=== PATIENT | female | born 1995 | race Asian ===

== ENCOUNTER 2024-05-28 07:35 | Outpatient (CLI) | payer BC, SELFPAY ==
--- NOTE | 2024-05-28 07:15 | CRLHL7_ITS ---
For Patients: As a result of the Century Cures Act, medical imaging exams and procedure reports are released immediately into your electronic medical record. You may view this report before your referring provider. If you have questions, please contact your health care provider. OB ULTRASOUND LESS THAN 14 WEEKS, 05/28/2024 CLINICAL HISTORY: Dating and viability. COMPARISON: None. TECHNIQUE: Real time rod scale imaging of the fetus was performed transvaginally and transabdominally. FINDINGS: LMP: 03/28/2024. ZAY by LMP: 01/02/2025. GA: 8 weeks 5 days. CRL: 2.4 cm, 9 weeks 1 day. ZAY: 12/30/2024. FHR: 180 bpm. GEST SAC: 3.8 cm, appears within normal limits. YOLK SAC: 3.2 mm, appears within normal limits. RIGHT OVARY: 3.1 x 1.6 x 1.6 cm, appears within normal limits. CL LFT OVARY: Not visualized. IMPRESSION: 1. Single living intrauterine with sonographic gestational age 9 weeks 1 day and sonographic due date 12/30/2024. 2. Large posterior fundal exophytic fibroid measures 13.3 x 7.9 x 12.1 cm. Smaller posterior intramural fibroid measures 3.1 x 2.2 x 2.7 cm. 3. Corpus luteal cyst right ovary. Non visualization left ovary. Spencer Rodriguez M.D. Diagnostic Radiologist [email or web address] Transcribed: 1:02 pm DW/Dictated by: Spencer Rodriguez MD @ 05/28/2024 10:59:00 AM (Electronically Signed)
== END 2024-05-28 07:36 | disposition home or self-care (01) ==
LOC: US 07:38
PROVIDERS: Visit Provider Advanced Practice Midwife
DX: Z34.91 Encounter for supervision of normal pregnancy, unspecified, first trimester (principal); O34.11 Maternal care for benign tumor of corpus uteri, first trimester; N83.11 Corpus luteum cyst of right ovary; D25.1 Intramural leiomyoma of uterus; Z3A.09 9 weeks gestation of pregnancy
CPT/HCPCS: 76801; 76817; 83021; 84443; 86592; 86703; 86704; 86706; 86762; 86787; 86803; 86850; 86900; 86901; 87086; 87340

== ENCOUNTER 2024-05-28 08:40 | Outpatient (CLI) | payer BC, SELFPAY | END 2024-05-28 08:41 | disposition home or self-care (01) | PROVIDERS: Visit Provider Advanced Practice Midwife | DX: Z34.01 Encounter for supervision of normal first pregnancy, first trimester (principal); Z67.10 Type A blood, Rh positive | CPT/HCPCS: 83020; 83021; 84443; 85660; 86592; 86703; 86704; 86706; 86762; 86787; 86803; 86850; 86900; 86901; 87086; 87340 ==

== ENCOUNTER 2024-10-13 09:04 | Outpatient (CLI) | payer BC, SELFPAY ==
--- NOTE | 2024-10-13 09:15 | CRLHL7_ITS ---
For Patients: As a result of the Century Cures Act, medical imaging exams and procedure reports are released immediately into your electronic medical record. You may view this report before your referring provider. If you have questions, please contact your health care provider. INDICATION: Circumvallate placenta and marginal insertion. Assess growth. TECHNIQUE: Ultrasound OB pelvis transabdominal. Real time rod scale imaging of the fetus was performed. COMPARISON: Ultrasound 09/15/2024 FINDINGS: Sonographic imaging demonstrates a single living intrauterine gestation. Fetus demonstrates a regular cardiac rate of 145 beats per minute. Fetus has a transverse orientation. The placenta lies in left fundal location without evidence of placenta previa. A placental Fuentes is noted measuring 3.7 cm. Amniotic fluid volume appears normal. Single deepest vertical pocket: 6.1 cm. Cervical length measures 4.8 cm. The composite ultrasound gestational age is calculated at 29 weeks 1 day with an estimated sonographic due date of 12/28/2024. The estimated weight is 1289 grams which lies at the 52%. The following biometric measurements were obtained: Biparietal diameter: 7.5 cm, 29 weeks 6 days Head circumference: 27.1 cm, 29 weeks 4 days Abdominal circumference: 24.2 cm, 28 weeks 3 days Femur length: 5.5 cm, 28 weeks 6 days A large fundal fibroid is redemonstrated measuring 15.5 x 10.1 x 12.9 cm. Previously seen posterior fibroid is not visualized on this exam. IMPRESSION: 1. Single living intrauterine gestation. Composite ultrasound gestational age of 29 weeks 1 day with estimated sonographic due date of 12/28/2024. Fetus appears to have demonstrated appropriate interval growth. 2. Dominant fundal uterine fibroid measuring 15.5 cm, grossly stable to prior exam. Dictated by Jose Sneed MD @ 10/17/2024 6:15:43 PM (Electronically Signed)
== END 2024-10-13 09:05 | disposition home or self-care (01) ==
LOC: US 09:05
PROVIDERS: Visit Provider Obstetrics & Gynecology
DX: O99.013 Anemia complicating pregnancy, third trimester (principal); Z3A.28 28 weeks gestation of pregnancy
CPT/HCPCS: 76816

== ENCOUNTER 2024-11-10 07:09 | Outpatient (CLI) | payer BC, SELFPAY ==
--- NOTE | 2024-11-10 07:15 | CRLHL7_ITS ---
For Patients: As a result of the Century Cures Act, medical imaging exams and procedure reports are released immediately into your electronic medical record. You may view this report before your referring provider. If you have questions, please contact your health care provider. OB ULTRASOUND ZAY by LMP: 01/02/2025. GA: 32 w, 3 d. Single. Comparison: 10/13/2024, 09/15/2024, 08/18/2024. INDICATION: Growth. Fibroid. Circumvallate. TECHNIQUE: Real time grayscale imaging of the fetus was performed. Transabdominal. CERVIX: Not visualized. POSITIONING: Vertex. AMNIOTIC FLUID: 5.9 cm. SDP (N: greater than 2 x 1 cm) PLACENTA: Technique: Transabdominal. PLACENTA POSITION: Fundal, left wall. DOPPLER: heart rate: 154 bpm. BIOMETRY: BPD: 8.3 cm. 33 w, 4 d, 75 percent. HC: 29.6 cm. 32 w, 5 d, 22 percent. AC: 27.5 cm. 31 w, 4 d, 25 percent. FL: 6.2 cm. 32 w, 1 d, 30 percent. FL/AC ratio: 22.55 percent. HC/AC ratio: 1.08. EFW: 1887 g. Weight: 4 lbs, 3 oz. age by this US: 32 w, 4 d. ZAY by this US: 01/01/2025. Percentile by ZAY: 28 percent. IMPRESSION: 1. Sonographic gestational age 32 weeks 4 days and sonographic due date 01/01/2025. Good correlation with dates. Normal interval growth. 2. Estimated weight 28th percentile. Abdominal circumference 25th percentile. 3. Large right-sided uterine fibroid measures 16.1 x 13.4 x 15.7 cm, previously measuring 15.5 x 10.1 x 12.9 cm. Spencer Rodriguez M.D. Diagnostic Radiologist [email or web address] FLAKO/milan yates/Dictated by: Spencer Rodriguez MD @ 11/10/2024 8:45:00 AM (Electronically Signed)
== END 2024-11-10 07:10 | disposition home or self-care (01) ==
LOC: US 07:10
PROVIDERS: Visit Provider Obstetrics & Gynecology
DX: O43.113 Circumvallate placenta, third trimester (principal); O34.13 Maternal care for benign tumor of corpus uteri, third trimester; D25.9 Leiomyoma of uterus, unspecified; Z3A.32 32 weeks gestation of pregnancy
CPT/HCPCS: 76816

== ENCOUNTER 2024-11-25 09:08 | Outpatient (CLI) | payer BC, SELFPAY | END 2024-11-25 09:09 | disposition home or self-care (01) | LOC: NFLDREF 11-30 13:44 | PROVIDERS: Visit Provider Obstetrics & Gynecology | DX: Z34.90 Encounter for supervision of normal pregnancy, unspecified, unspecified trimester (principal) | CPT/HCPCS: 82728 ==

== ENCOUNTER 2024-12-08 07:12 | Outpatient (CLI) | payer BC, SELFPAY ==
--- NOTE | 2024-12-08 07:15 | CRLHL7_ITS ---
For Patients: As a result of the Century Cures Act, medical imaging exams and procedure reports are released immediately into your electronic medical record. You may view this report before your referring provider. If you have questions, please contact your health care provider. INDICATION: Marginal cord insertion, circumvallate placenta TECHNIQUE: Ultrasound OB pelvis transabdominal. Real-time rod-scale imaging of the fetus was performed without stress testing. COMPARISON: Ob ultrasound 11/10/2024 FINDINGS: Ariza intrauterine gestation. Cardiac activity with heart rate of 141 beats per minute. Fetus has a cephalic orientation. Biometric measurements: Biparietal diameter: 45.1%. Head circumference: 28.4%. Abdominal circumference: 59.3%. Femur length: 31.6%. Estimated weight: 2877 grams, 46.8 percentile. Estimated ultrasound age by today`s measurements is 36 weeks, 1 day. Amniotic fluid volume appears normal, with single deepest pocket measuring 4.8 centimeters. motion, and tone were reportedly observed. was not observed. Fibroid uterus with a large exophytic fibroid measuring 15.5 x 8.3 x 11.8 centimeters, previously 16.1 x 13.4 x 15.7 centimeters. IMPRESSION: Ariza intrauterine in cephalic presentation with cardiac activity. Estimated gestational age of 32 weeks, 3 days by LMP is concordant with biometry. There has been interval growth with estimated weight now at 2877 grams, which is at 46.8 percentile, previously 1887 grams which was at 28th percentile. Biophysical profile score of 6/8 with breathing not visualized. Correlation with nonstress test can be considered at clinical discretion. Dictated by Xuan Grier MD @ 12/08/2024 8:37:26 AM (Electronically Signed)
== END 2024-12-08 07:13 | disposition home or self-care (01) ==
LOC: US 07:13
PROVIDERS: Visit Provider Obstetrics & Gynecology
DX: O43.193 Other malformation of placenta, third trimester (principal); O43.113 Circumvallate placenta, third trimester; Z3A.32 32 weeks gestation of pregnancy
CPT/HCPCS: 76816; 76819

== ENCOUNTER 2024-12-18 07:26 | Outpatient (CLI) | payer BC, SELFPAY ==
--- NOTE | 2024-12-18 07:15 | CRLHL7_ITS ---
For Patients: As a result of the Cures Act, medical imaging exams and procedure reports are released immediately into your electronic medical record. You may view this report before your referring provider. If you have questions, please contact your health care provider. OB ULTRASOUND ZAY by LMP: 01/02/2025. GA: 37 w, 6 d. Single. Comparison: 12/08/2024, 11/10/2024, 10/13/2024. INDICATION: Circumvallate placenta and marginal cord insertion. TECHNIQUE: Real time grayscale imaging of the fetus was performed. Transabdominal. CERVIX: Not visualized. POSITIONING: Vertex. AMNIOTIC FLUID: 6.1 cm. SDP (N: greater than 2 x 1 cm) BIOPHYSICAL PROFILE: 2: Gross body movements 2: tone 2: Respiratory activity 2: Amniotic fluid SDP (N: greater than 2 x 1 cm) 8/8: Total score PLACENTA: Technique: Transabdominal. PLACENTA POSITION: Anterior, left wall. DOPPLER: heart rate: 139 bpm. IMPRESSION: 1. Normal biophysical profile score 8/8. 2. Large right-sided exophytic fibroid again noted which measures 15.5 x 11.1 x 11.7 cm, not significantly changed. Spencer Rodriguez M.D. Diagnostic Radiologist [email or web address] FLAKO/milan yates/Dictated by: Spencer Rodriguez MD @ 12/18/2024 10:45:00 AM (Electronically Signed)
== END 2024-12-18 07:27 | disposition home or self-care (01) ==
LOC: US 07:27
PROVIDERS: Visit Provider Obstetrics & Gynecology
DX: O34.83 Maternal care for other abnormalities of pelvic organs, third trimester (principal); O43.113 Circumvallate placenta, third trimester; D25.9 Leiomyoma of uterus, unspecified; Z3A.37 37 weeks gestation of pregnancy
CPT/HCPCS: 76819

== ENCOUNTER 2024-12-22 07:14 | Outpatient (CLI) | payer BC, SELFPAY ==
--- NOTE | 2024-12-22 07:15 | CRLHL7_ITS ---
For Patients: As a result of the Century Cures Act, medical imaging exams and procedure reports are released immediately into your electronic medical record. You may view this report before your referring provider. If you have questions, please contact your health care provider. OB ULTRASOUND BIOPHYSICAL PROFILE ZAY by LMP: 01/02/2025. GA: 38 w, 3 d. Single. Comparison: US 12/18/2024, 12/08/2024. INDICATION: Leimyoma of uterus. TECHNIQUE: Real time rod scale imaging of the fetus was performed. Transabdominal. CERVIX: Not visualized. POSITIONING: Vertex. AMNIOTIC FLUID: 7.6 cm. SDP (N: greater than 2 x 1 cm) BIOPHYSICAL PROFILE: Total score: 2. Gross body movements: 2. tone: 2. Respiratory activity: 2. Amniotic fluid: 2. (SDP N: greater than 2 x 1 cm) Total: 10/23. PLACENTA: Technique: Transabdominal. PLACENTA POSITION: Anterior. DOPPLER: heart rate: 138 bpm. IMPRESSION: 1. Normal biophysical profile 10/23. 2. Uterine fibroid measures 15.2 x 11.9 x 12.2 cm, not significantly changed. Spencer Rodriguez M.D. Diagnostic Radiologist [email or web address] FLAKO/willis JR/Dictated by: Spencer Rodriguez MD @ 12/22/2024 8:28:00 AM (Electronically Signed)
== END 2024-12-22 07:15 | disposition home or self-care (01) ==
LOC: US 07:15
PROVIDERS: Visit Provider Obstetrics & Gynecology
DX: O43.113 Circumvallate placenta, third trimester (principal); O34.13 Maternal care for benign tumor of corpus uteri, third trimester; D25.9 Leiomyoma of uterus, unspecified; Z3A.37 37 weeks gestation of pregnancy
CPT/HCPCS: 76819

== ENCOUNTER 2024-12-28 14:51 | Outpatient (CLI) | payer BC, SELFPAY ==
[2024-12-28 15:33] VITALS: RESP 16; TEMP 36.9
[2024-12-28 15:34] VITALS: BP 110/77; PULSE 83
[2024-12-28 15:35] VITALS: PULSE 79; O2SAT 97
[2024-12-28 15:38] LABS: Amnisure Rom* Negative
--- NOTE | 2024-12-28 17:01 | PC.OBNST ---
NST Note NST Note Start: 12/28/24 15:03 Freq: ONCE Status: Active Protocol: Document 12/28/24 17:00 ABE (Rec: 12/28/24 17:01 ABE No Response) NST Note 1 Para (# of births) 0 EDC 01/02/25 Gestational Age In 39 Weeks & 2 Days Weeks & Days Patient Presented Contractions/cramping,Leaking fluid with Complaint(s) of Reactive Yes Appropriate for Yes Gestational Age SHAE Higginbotham, RN Date 12/28/24 Reactive Yes Appropriate for Yes Gestational Age SHAE Perrin RNC Date 12/28/24 OB NST charge Yes Complete NST Note Yes via Write Note The provider's electronic signature indicates the NST is reactive/appropriate for gestational age. *Note to provider: If an addendum is required, open the patient's chart and click on the note under the Nurse/Allied Health tab.
[2024-12-28 17:39] LABS: Bacterial Vaginosis* Negative (Negative); Candida glab/krus DETECTED (No Detected)
== END 2024-12-28 16:39 | disposition home or self-care (01) ==
LOC: OB OUT 14:52 → OB 14:52
PROVIDERS: Visit Provider Obstetrics & Gynecology
DX: O43.193 Other malformation of placenta, third trimester (principal); O34.13 Maternal care for benign tumor of corpus uteri, third trimester; D25.9 Leiomyoma of uterus, unspecified; Z3A.39 39 weeks gestation of pregnancy
CPT/HCPCS: 59025; 81513; 84112; 87481; 87661; G0463

== ENCOUNTER 2024-12-29 08:08 | Outpatient (CLI) | payer BC, SELFPAY ==
--- NOTE | 2024-12-29 08:15 | CRLHL7_ITS ---
For Patients: As a result of the Century Cures Act, medical imaging exams and procedure reports are released immediately into your electronic medical record. You may view this report before your referring provider. If you have questions, please contact your health care provider. OBSTETRICAL ULTRASOUND ??? BIOPHYSICAL PROFILE INDICATION: Marginal cord insertion, circumvallate placenta, and fibroid uterus. Biophysical profile. CLINICAL HISTORY: LMP: 03/28/2024 ZAY by LMP: 01/02/2025 Gestational Age: 39 weeks 3 days COMPARISON: 12/22/2024, 12/18/2024, 12/08/2024. TECHNIQUE: Real-time rod-scale transabdominal imaging of the fetus was performed. FINDINGS: Fetus: Single Cervix: Not visualized positioning: Vertex Amniotic Fluid: 7.6 cm SDP BIOPHYSICAL PROFILE: Gross body movements: 2 tone: 2 Respiratory activity: 2 Amniotic fluid SDP: 2 Total score: 8 Placenta technique: Transabdominal Placenta position: Anterior heart rate: 129 bpm IMPRESSION: 1. Normal biophysical profile score of 8/8. 2. Exophytic right-sided uterine fibroid again noted which measures 14.9 x 8.3 x 11.0 cm. SPENCER MARTINEZ M.D. Diagnostic Radiologist [email or web address] Transcribed: 10:[address]/Dictated by: Spencer Martinez MD @ 12/29/2024 9:59:00 AM (Electronically Signed)
== END 2024-12-29 08:09 | disposition home or self-care (01) ==
LOC: US 08:08
PROVIDERS: Visit Provider Obstetrics & Gynecology
DX: O43.113 Circumvallate placenta, third trimester (principal); O34.13 Maternal care for benign tumor of corpus uteri, third trimester; D25.9 Leiomyoma of uterus, unspecified; Z3A.39 39 weeks gestation of pregnancy; O43.193 Other malformation of placenta, third trimester
CPT/HCPCS: 76819

== ENCOUNTER 2024-12-31 02:09 | Inpatient (IN) | payer BC, SELFPAY ==
[2024-12-31] VITALS (55 sets, daily range): BP systolic 88–130; BP diastolic 49–79; PULSE 62–100; RESP 16; TEMP 36.6–37.2; O2SAT 93–100; BMI 31.1
[2024-12-31 02:04] LABS: Amnisure Rom* POSITIVE
[2024-12-31] MEDS: CALCIUM CARBONATE 500 MG CHEW PO (04:05)
--- NOTE | 2024-12-31 04:41 | P.LDBA_ITS ---
Subjective History of Present Illness Date Seen: 12/31/24 Narrative: Patient is being admitted to Labor and Delivery for spontaneous rupture of membranes. She is a 29 year old at 39 5/7 weeks gestation. Her full history and physical was dictated by Dr. Moore on 12/18/2024. Please see this for details. She experience leakage of clear fluid from the vagina prior to her arrival to the unit at 1:15 a.m. this morning. Rupture of membranes was confirmed by visual examination and AmniSure test. She is currently experiencing contractions at about 5 minute intervals. She states the contractions started following membrane rupture. Her fetus remains active. Specific Issues/Plans G1 : Deny Baby: Boy! 05/28/2024: Paperwork declined patient was asked to complete the 5P's and Social History questionnaire twice and did not fill out. # Large fundal fibroid 13.3 cm x 7.9 cm x 12.1 cm 11/10/24: 16.1 x 13.4 x 15.7 cm At risk for labor, growth restriction, dysfunctional labor, and PPH Recommend Level II-completed. See below - Recommend CBC, T/C for 2 u on admission, AMTSL #Circumvallate placenta and marginal cord insertion US for EFW Q4 wks, weekly BPP starting at 36 weeks. sheet filled on 10/13 # Migraine with Aura # PHQ 15 at NOB, consider follow-up Imagin07/15/24- Lev 2 SLIUP 15w4d, no anomalies detected. Growth parameters normal and consistent with assigned ZAY. AFV is normal. Mulitiple fibroids noted with largest measuring 15.3 cmx 14.4cmx 10cm near right fundal uterus. Unclear if pedunculated or attached to exterior uterine wall. F/U in 4 week for detailed survey. 08/18/24 LVL 2: Transverse presentation. SDP 5.3 cm. Posterior placenta without previa. 3-vessel cord. EFW 53%. Largest fibroid right, lateral fundus: 15 x 13 x 16 cm. 2 other anterior fibroids measurin.8 x 1.7 x 1.3 cm and 2.4 x 2.3 x 1.5 cm. Marginal cord insertion. Spine suboptimally visualized due to position. Follow-up with the [facility] physicians in 4 weeks for EFW and for visualization of suboptimal anatomy during this scan. 09/15/24 F/U: Breech, SDP 5.8cm. 3 vessel cord. Circumvallate placenta. Marginal cord insertion. Previous suboptimal anatomy visualized and normal. 3 fibroids: 15.4 x 14.4 x11.7cm. 2.7 x 2.0 x 1.4cm. 2.7cm x 3.2cm x 1.7cm. USN's in [place] for EFW Q4wks, wkly BPP starting at 36 wks. 11/10/24: Vertex, SDP 0.9 cm. Right lateral fibroid measuring 618.1 x 13.4 x 15.7 cm. Posterior fibroid not appreciated. No comment on placenta or cord insertion will await final report []. EFW 28% 12/08/24: Vertex. EFW 2877g at 47%ile - BPD 45%, HC 28%, AC 59%, FL 32%. MVP 4.8cm. 6/8 BPP (NST in clinic to follow). Fibroid measures 15x5x8.3x11.8cm. 12/18/24: 8/8 BPP, MVP 6.1cm, FHR 139bpm. Pap: Never had one, declined at [facility] although strongly encouraged; plan COVID: declined Flu: declined TDAP: 10/28/24 RSV: 12/08/24 32wk Mental Health: 11/10/24 34wk Hgb:11/25/24 10.4 GBS negative OB - Problem Based A/P Additional Plan (1) Spontaneous rupture of membranes: Status: Acute (2) Anemia: Status: Acute (3) Uterine fibroid: Problem details: Large fundal fibroid 13.3 cm x 7.9 cm x 12.1 cm Status: Acute (4) Term : Status: Acute Delivery/Labor/Induction Plan Plan: expectant management OB Result Labs Blood Type: A (+) positive Rubella: immune RPR/VDLR: nonreactive GBS Status: negative HBsAG: negative OB Exam Physical Exam Vital signs: Temp Pulse Resp BP Pulse Ox 98.2 F 63 16 103/60 97 12/31/24 04:10 12/31/24 04:10 12/31/24 04:10 12/31/24 04:10 12/31/24 03:19 Detailed Labor and Delivery Exam Patient Gravid: yes Dilation (cm): 0 Effacement (%): 20 Contraction Frequency: 5 minutes Contraction intensity: Mild Comments: Cervical examination per nursing. Fetus (Single) Station: -4 Amniotic Membrane Status: SROM Amniotic Membrane Fluid Description: Clear Heart Rate Baseline: 130 Monitor Accelerations: Present Monitor Decelerations: None Freight Elevator Erector Variability: Moderate (6-25)
[2024-12-31 10:01] LABS: Hematocrit* 35.2 % (33.0-51.0); Hemoglobin* 11.4 gm/dL (12.0-16.0); Immature Granulocytes Abs Auto 0.17 K/uL (0.00-0.30); Immature Granulocytes Pct Auto 1.9 %; Mean Corpuscular HGB Conc 32 gm/dL (32-36); Mean Corpuscular Hemoglobin 26 pg (26-34); Mean Corpuscular Volume 81 fL (80-100); RDW Coefficient of Variation % 20.1 % (11.5-15.5); Red Blood Count* 4.37 m/uL (4.00-5.20); White Blood Count* 8.94 K/uL (4.50-11.00)
[2024-12-31 10:05] LABS: Lymphocytes Absolute Auto 1.60 K/uL (0.90-2.90); Slide Review Reflex No
--- NOTE | 2024-12-31 15:50 | P.OBPN_ITS ---
OB - PN:Subj Subjective Time Seen by Provider: 07:30 Date Seen: 12/31/24 OB - PN: Obj Exam Physical Exam: Vital signs: Temp Pulse Resp BP Pulse Ox 98.5 F 70 16 106/62 97 12/31/24 15:42 12/31/24 15:42 12/31/24 15:42 12/31/24 15:42 12/31/24 03:19 OB - PN: Obj Data Labs Labs: Laboratory Results - last 24 hr 12/31/24 12/31/24 01:34 09:52 WBC 8.94 RBC 4.37 Hgb 11.4 L Hct 35.2 MCV 81 MCH 26 MCHC 32 RDW Coeff of Pio 20.1 H Plt Count 211 Neut % (Auto) 76.1 H Lymph % (Auto) 18.0 L [place] % (Auto) 3.2 Eos % (Auto) 0.7 Baso % (Auto) 0.1 Neut # (Auto) 6.80 Lymph # (Auto) 1.60 [place] # (Auto) 0.30 Eos # (Auto) 0.06 Baso # (Auto) 0.01 Abs Immat Gran (auto) 0.17 Imm/Tot Granulo (auto) 1.9 Membrane Rupture POSITIVE Blood Type A Positive Antibody Screen NEGATIVE Crossmatch (AHG) See Detail OB - PN: A/P Delivery Assessment and Plan (1) Spontaneous rupture of membranes: Status: Acute (2) Anemia: Status: Acute (3) Uterine fibroid: Problem details: Large fundal fibroid 13.3 cm x 7.9 cm x 12.1 cm Status: Acute (4) Term : Status: Acute
[2024-12-31] MEDS: OXYTOCIN 30 unit/500 ML in NS 30 UNIT/500 ML BAG IVPB (19:27)
[2024-12-31] MEDS: LACTATED RINGERS 1000 ML 1,000 ML 125 ML IV (19:27)
--- NOTE | 2024-12-31 19:54 | P.OBPN_ITS ---
Subjective Time Seen by Provider: 07:30 Date Seen: 12/31/24 Narrative: Patient appreciating contractions but tolerable Objective Vital Signs: Last Vital Signs Temp 99 F 12/31/24 19:05 Pulse 73 12/31/24 19:05 Resp 16 12/31/24 19:05 BP 107/54 L 12/31/24 19:05 Pulse Ox 97 12/31/24 03:19 Pelvic Exam Dilation (cm): 1 Effacement (%): 50 Station: -3 Comments: Minimal change on expectant management. Patient consented to PO misoprostol Contractions Contraction intensity: Mild Assessment Heart Rate Baseline: 130 [place] Examiner Variability: Moderate (6-25) Monitor Accelerations: Present Monitor Decelerations: None
--- NOTE | 2024-12-31 19:59 | PM.OBPNL ---
Subjective Time Seen by Provider: 18:15 Date Seen: 12/31/24 Objective Vital Signs: Last Vital Signs Temp 99 F 12/31/24 19:05 Pulse 73 12/31/24 19:05 Resp 16 12/31/24 19:05 BP 107/54 L 12/31/24 19:05 Pulse Ox 97 12/31/24 03:19 Pelvic Exam Dilation (cm): 1.5 Effacement (%): 75 Station: -1 Comments: Minimal change after 3 doses of PO misoprostol. Patient amenable to starting pitocin Contractions Contraction intensity: Moderate Assessment Heart Rate Baseline: 140 Alf Variability: Marked (>25) Monitor Accelerations: Present Monitor Decelerations: None
[2024-12-31] MEDS: LIDOCAINE 2% (PF) 5 ML VIAL EPIDURAL (23:06)
[2024-12-31] MEDS: ROPIVACAINE 0.2% 100 ml 100 ML 12 MG EPIDURAL (23:06)
[2024-12-31] MEDS: PHENYLEPHRINE 100 MCG/ML SYRINGE IVP ×2 (23:10→23:12)
--- NOTE | 2024-12-31 23:24 | PM.ANBPRC ---
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, Developer Lives with: Pets: none Abuse: Denies past/present Special Diet: Denies Ok with a blood transfusion: yes Culture or mandaeism beliefs: Islamic, no males RISK FACTORS Exercise Times/wk: Not routinely Hx of Depression and/or Anxiety/other mood disorder: no history Seat Belt Use: Routinely Smoking: Denies past/present Alcohol/day: Denies while Caffeine: Soda, rare Drug Use: Denies past/present Chicken Pox: Yes as a child MRSA: Denies What is your current living situation?: I presently have a place to live Problems where you live: no known problems In the past 12 months, utilities in danger of being shut off: no In past 12 months, lack of transportation kept you from medical appts, meetings, work, or getting things needed for daily living: no In the past 12 mos, have been you worried that your food would run out before you had money to buy more?: never true In the past 12 mos, the food you bought just didn't last and you didn't have money to buy more?: never true Smoking Status: Former smoker How often does anyone, including family, friends and others, physically hurt you: never How often does anyone, including family, friends and others, insult or talk down to you: never How often does anyone, including family, friends and others, threaten you with harm: never How often does anyone, including family, friends and others, scream or curse at you: never Meds Home Medications and Allergies Home Medications ?Medication ?Instructions ?Recorded ?Confirmed ?Type vits no.126-ferrous fum 1 tab PO DAILY 08/26/24 12/31/24 History 28 mg iron-folic acid 800 mcg tablet (Classic ) ferrous sulfate 325 mg (65 mg 325 mg PO QMWF #30 tabs 10/13/24 12/31/24 Rx iron) tablet metoclopramide HCl 10 mg tablet 10 mg PO Q6H PRN nausea and 11/10/24 12/31/24 Rx (Reglan) vomiting #30 tabs magnesium 250 mg tablet 500 mg PO QDAY 12/18/24 12/31/24 History Held on 12/31/24. Instructions: Pt chose to stop taking Allergies Allergy/AdvReac Type Severity Reaction Status Date / Time No Known Drug Allergies Allergy Verified 12/31/24 03:57 Results Labs Labs: Laboratory Results - last 24 hr 12/31/24 12/31/24 01:34 09:52 WBC 8.94 RBC 4.37 Hgb 11.4 L Hct 35.2 MCV 81 MCH 26 MCHC 32 RDW Coeff of Pio 20.1 H Plt Count 211 Neut % (Auto) 76.1 H Lymph % (Auto) 18.0 L [place] % (Auto) 3.2 Eos % (Auto) 0.7 Baso % (Auto) 0.1 Neut # (Auto) 6.80 Lymph # (Auto) 1.60 [place] # (Auto) 0.30 Eos # (Auto) 0.06 Baso # (Auto) 0.01 Abs Immat Gran (auto) 0.17 Imm/Tot Granulo (auto) 1.9 Membrane Rupture POSITIVE Blood Type A Positive Antibody Screen NEGATIVE Crossmatch (AHG) See Detail Vital Signs Vital Signs: Last Vital Signs Temp 98.1 F 12/31/24 22:20 Pulse 75 12/31/24 23:22 Resp 16 12/31/24 19:05 BP 125/74 12/31/24 23:22 Pulse Ox 99 12/31/24 23:21 Weight: 87.543 kg Height: 167.64 cm Anesthesia Procedures Epidural Insertion Patient Location: OB Start Time: :35 Stop Time: 23:35 Start Date: 12/31/24 Stop Date: 12/31/24 Reason for Block: procedure for pain Patient Position: sitting Performed By: Corin Devine Preanesthetic Checklist: IV checked, risks and benefits discussed, monitors and equipment checked, pre-op evaluation, timeout performed and anesthesia consent Prep: chlorhexidine gluconate Monitoring: blood pressure monitoring, continuous pulse oximetry and heart rate Approach: midline Vertebral Space: lumbar (1-5) Epidural Technique: MILY saline Needle Type: Tuohy needle Injection Technique: continuous catheter (continuous catheter) Needle gauge: 17 Needle Length (cm): 10 cm Needle Insertion Depth (cm): 7 Catheter Gauge: 19 Catheter Type: multi-orifice Catheter at skin depth (cm): 15 Test Dose Result: negative and lidocaine 1.5% with epinephrine 1 to 200,000
--- NOTE | 2024-12-31 23:47 | PM.OBPNL ---
Subjective Time Seen by Provider: 22:30 Date Seen: 12/31/24 Objective Vital Signs: Last Vital Signs Temp 98.1 F 12/31/24 22:20 Pulse 81 12/31/24 23:43 Resp 16 12/31/24 19:05 BP 103/58 L 12/31/24 23:43 Pulse Ox 97 12/31/24 23:46 Pelvic Exam Dilation (cm): 1.5 Effacement (%): 75 Station: -1 Comments: Patient coping very poorly with pain. On only 3u of pitocin but tomeka Q1-2 minutes. Patient requested a cervical exam and for Pitocin to be turned off. Patient was unchanged and requested an epidural. Does not want Pitocin restarted until she's comfortable and has gotten some rest. MARBLE INSTALLER notified. Patient and partner asked about timeline for recommending delivery. Discussed that if she does not go into active labor 12-18hr with ruptured membrane and on pitocin, then a would be indicated. Pitocin was started at 1930. Recommend epidural placement, restart pitocin some time after epidural placement, and cervical exam at 7:30 AM (which would be 12hrs since the start of pitocin) and reassess then. Patient and partner are happy with this plan. Contractions Contraction intensity: Moderate Assessment Status: Category l Heart Rate Baseline: 130 Account Receivable Associate Variability: Moderate (6-25) Monitor Accelerations: Present Monitor Decelerations: None
[2025-01-01] VITALS (49 sets, daily range): BP systolic 79–125; BP diastolic 49–68; PULSE 71–100; RESP 16; TEMP 36.6–37.2; O2SAT 88–98
[2025-01-01] MEDS: PHENYLEPHRINE 100 MCG/ML SYRINGE IVP ×2 (00:48→01:20)
[2025-01-01] MEDS: ePHEDrine sulfate 5 MG/ML inj 10 MG IVP (01:49)
[2025-01-01] MEDS: LACTATED RINGERS 1000 ML 1,000 ML 125 ML IV (02:17)
--- NOTE | 2025-01-01 05:34 | W.PM.VAGDEL1 ---
Procedure Delivery date: 01/01/25 Procedure Done: Global Narrative: The patient is a 29 year-old G 1 P 0 admitted on 12/31/2024 at 39 and 5/7 weeks gestation for premature rupture of membrane. GBS negative Labor Analgesia: Epidural Pitocin: Yes for augmentation of labor and active management of 3rd stage PROM: 12/31/24 at 0030, with clear fluid Complete: 01/01/25 at 0440 Pushin01/01/25 at 0445 heart tones during second stage were II: 140 bpm, moderate variability, + accel with variables down to the 70s with pushing. Spontaneous recovery after pushing. Patient make rapid decent with pushing. At 0503 a viable male delivered in vertex OA presentation over intact via spontaneous vaginal delivery. The 's body was delivered in the usual manner without difficulty. The was placed on maternal abdomen. The cord was clamped and cut after a 30-60 second delay. The nose and mouth were bulb suctioned. Infant weight: 3230. 8 at 1 minute and 9 at 5 minutes. Shoulder dystocia: No. Nuchal cord: tight nuchal card x2 with 1st loop reduced at perineum, delivered through and 2nd cord loose and delivered through body. Placenta delivered spontaneously and complete at 0508 with a 3-vessel cord. Placenta examined and noted to be complete. Placenta was sent to pathology due to velamentous cord insertion noted. The cervix and vagina were inspected for lacerations. Laceration(s): Short 2nd degree perineal, repaired with 2-0 vicryl Complications: None Estimated blood loss: 50 cc Cord gases: not indicated Sponge and needles counts are correct. Mother and infant were stable at the time of this note.
[2025-01-01] MEDS: ACETAMINOPHEN 500 MG TABLET 1000 MG PO ×2 (11:03→16:28)
--- NOTE | 2025-01-01 13:39 | PM.ANPOST ---
Post Anesthesia Note Post Anesthesia Note Patient seen: Inpatient Respiratory Status: adequate Cardiovascular Status: adequate Mental Status: baseline Pain: adequate Temp: baseline Anesthetic awareness: N/A Complications: none Follow care: none
[2025-01-01] MEDS: IBUPROFEN 600 MG TABLET PO (20:50)
[2025-01-02] VITALS: BP 95/63; PULSE 88; RESP 16; TEMP 36.8; O2SAT 97
[2025-01-02 04:56] VITALS: BP 91/58; PULSE 72; RESP 16; TEMP 36.7; O2SAT 97
[2025-01-02] MEDS: ACETAMINOPHEN 500 MG TABLET 1000 MG PO (06:10)
[2025-01-02] MEDS: DOCUSATE SODIUM 100 MG CAPSULE PO (06:10)
[2025-01-02 07:15] LABS: Hemoglobin* 11.0 gm/dL (12.0-16.0)
[2025-01-02 07:40] VITALS: BP 86/59; PULSE 71; RESP 16; TEMP 36.6; O2SAT 98
[2025-01-02] MEDS: IBUPROFEN 600 MG TABLET PO (08:32)
--- NOTE | 2025-01-02 10:44 | P.DS_ITS ---
DS: Providers Provider Date Seen: 01/02/25 Date of admission: 12/31/24 02:09 Primary care physician: Not a Local Provider Admitting Clinician: Razia Hillman MD Attending Physician on discharge: MD Bobbi Date of Discharge: 01/02/25 DS: Diagnosis Discharge Diagnosis (1) Status post vaginal delivery: Status: Acute (2) Vaginal delivery: Status: Acute (3) Anemia: Status: Acute (4) Uterine fibroid: Status: Acute Problem details: Large fundal fibroid 13.3 cm x 7.9 cm x 12.1 cm Exam Narrative: Exam Narrative: GENERAL APPEARANCE:? normal affect, alert, no distress MOOD:? appropriate CHEST:? clear to auscultation HEART:? regular rate and rhythm ABDOMEN:? soft, non-tender the uterine fundus is At Umbilicus, Midline and is appropriate for the stage of recovery. PERINEUM:? mild edema of the perineum, there is a 2nd degree Perineal Laceration, that is healing well. EXTREMITIES:? normal and no edema Const: Vital Signs, click to edit/add: Vital Signs - 24 hr 01/01/25 12:15 01/01/25 16:15 01/01/25 20:28 Temperature 98.9 F 98.6 F 97.9 F Pulse Rate [Pulse Oximeter] 92 83 100 Respiratory Rate 16 16 16 Blood Pressure [Ri ght Arm] 84/57 L 79/53 L 98/66 Pulse Oximetry 96 96 97 Oxygen Delivery Me thod Room Air Room Air Room Air 01/02/25 00:00 01/02/25 04:56 01/02/25 07:40 Temperature 98.2 F 98.0 F 97.9 F Pulse Rate [Pulse Oximeter] 88 72 71 Respiratory Rate 16 16 16 Blood Pressure [Ri ght Arm] 95/63 91/58 L 86/59 L Pulse Oximetry 97 97 98 Oxygen Delivery Me thod Room Air Room Air Room Air OB - DS: Summary Hospital Course Hospital Course: The patient is a 29 year old G 1 P 1 at 39 and 6 weeks gestation that was admitted to the Center on 12/31/24 in labor for delivery. She had an uncomplicated vaginal delivery. She delivered a viable male infant. She is breast feeding. the patient has done well. Peripartum Data delivery method: Vaginal Laceration description: Perineal - 2nd Degree Procedures: Spontaneous vaginal delivery. complications: none [place] Gender: Male Infant Discharge Plan: Home Status at Discharge Functional status at discharge: independent ambulation Overall status at discharge: patient is progressing back to baseline Time Spent with Patient Time attestation: Total time spent providing and/or coordinating discharge services: Time spent: Less than 30 minutes Discharge Plan Discharge Disposition: Home, Self-Care Date of Admission: 12/31/24 02:09 Attending Provider on Discharge: Katy Verma Primary Care Provider: Provider,Not a Local Condition: Stable Anticipated Discharge Date/Time: 01/02/25 10:47 Discharge Medications: New acetaminophen 500 mg Tablet 1,000 mg PO Q6H PRNQty: 30 0RF docusate sodium 100 mg Capsule 100 mg PO DAILY Qty: 30 0RF ibuprofen 600 mg Tablet 600 mg PO Q6H PRNQty: 30 0RF Continued Classic 28 mg iron- 800 mcg tablet 1 tab PO DAILY magnesium 250 mg tablet 500 mg PO QDAY Discontinued ferrous sulfate 325 mg (65 mg iron) tablet 325 mg PO QMWF Qty: 30 0RF metoclopramide HCl [Reglan] 10 mg tablet 10 mg PO Q6H PRN (Reason: nausea and vomiting) Qty: 30 2RF Discharge Orders: Discharge Order (Routine); Ordered 01/02/25 Ordered By: Katy Verma Patient Education: OB Vaginal/Breast Feeding Additional Instructions: FU in 2 weeks for mood and check. FU in 6 weeks for regular visit. Activity Level: Activity as Tolerated Activity Detail: Nothing vaginally for 6 weeks. Discharge Diet: Regular Follow Up Appointments: Provider,Not a Local [Primary Care Provider, Family Practice] Forms: [facility] Info Instructions
[2025-01-02 12:45] VITALS: BP 93/64; PULSE 76; RESP 16; TEMP 36.4; O2SAT 98
== END 2025-01-02 15:33 | disposition home or self-care (01) | DRG 560 ==
LOC: OB OUT 02:10 → OB 02:10
PROVIDERS: Obstetrics & Gynecology; Admitting Provider Obstetrics & Gynecology; Visit Provider Obstetrics & Gynecology
DX: O42.02 Full-term premature rupture of membranes, onset of labor within 24 hours of rupture (principal); O43.123 Velamentous insertion of umbilical cord, third trimester; O69.81X0 Labor and delivery complicated by cord around neck, without compression, not applicable or unspecified; O70.1 Second degree perineal laceration during delivery; O34.13 Maternal care for benign tumor of corpus uteri, third trimester; D25.9 Leiomyoma of uterus, unspecified; O99.02 Anemia complicating childbirth; D64.9 Anemia, unspecified; Z37.0 Single live birth; Z3A.39 39 weeks gestation of pregnancy; O43.113 Circumvallate placenta, third trimester; O43.193 Other malformation of placenta, third trimester
CPT/HCPCS: 01967; 36415; 59025; 59200; 76819; 81513; 84112; 85018; 85025; 86592; 86850; 86900; 86901; 86922; 87481; 87661; 88307; G0463; A9270; J2270; J2590; J2795; J3010; J7120

== ENCOUNTER 2025-02-18 11:10 | Outpatient (CLI) | payer MEDICAID, SELFPAY ==
[2025-02-18 22:53] LABS: Bacterial Vaginosis* Negative (Negative); Candida glab/krus NOT DETECTED (No Detected)
[2025-02-20 11:24] LABS: HPV Source Cervix
[2025-02-21 17:40] LABS: HPV Genotype 16 by TMA Not Detected; HPV Genotype 18/45 by TMA Not Detected
[2025-02-27 16:51] LABS: Pap Test Digital Imaging Done; Pap Test Reviewed by Pathologi Done
== END 2025-02-18 11:11 | disposition home or self-care (01) ==
PROVIDERS: Visit Provider Registered Nurse
DX: Z12.4 Encounter for screening for malignant neoplasm of cervix (principal); N89.8 Other specified noninflammatory disorders of vagina
CPT/HCPCS: 81513; 87481; 87491; 87591; 87624; 87625; 87661; 88141; 88142; 88175